=== PATIENT | female | born 1995 | race Caucasian/White ===

== ENCOUNTER 2018-04-17 15:57 | Emergency (ER) | payer OTHER ==
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
[2018-04-17] MEDS ORDERED: IBUPROFEN 800 MG TAB PO ONE (17:44)
[2018-04-17 17:56] VITALS: BP 116/84
== END 2018-04-17 17:57 | disposition home or self-care (01) ==
DX: S16.1XXA Strain of muscle, fascia and tendon at neck level, initial encounter (principal); S06.0X0A Concussion without loss of consciousness, initial encounter; V49.59XA Passenger injured in collision with other motor vehicles in traffic accident, initial encounter